=== PATIENT | female | born 1965 | race Caucasian/White ===

== ENCOUNTER 2017-06-30 16:04 | Emergency (ER) | payer SELFPAY ==
[2017-06-30 16:23] VITALS: BP 129/77
--- NOTE | 2017-06-30 17:10 | UC ---
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 - History of Current Complaint Chief Complaint: UCGeneralIllness Stated Complaint: WC NECK INJURY Time Seen by Provider: 06/30/17 17:01 Hx Obtained From: Patient ?: No Mechanism Of Injury: No Known Trauma Timing: Constant Severity: Mild Pain Intensity: 7 Location: Discrete At: - left side posterior neck Character: Dull, Aching, Stiff, Spasmotic Aggravating Factors: Movement Alleviating Factors: Position Associated Signs & Symptoms: Positive: Negative - Risk Factors Meningitis Risk Factors: Negative - Allergies/Home Medications Allergies/Adverse Reactions: Allergies Allergy/AdvReac Type Severity Reaction Status Date / Time sulfamethoxazole Allergy Rash And Verified 06/30/17 16:15 [From Bactrim] Itching trimethoprim [From Bactrim] Allergy Rash And Verified 06/30/17 16:15 Itching Home Medications: Home Medications Cetirizine* [ZyrTEC 10 MG TAB*] 1 tab BEDTIME 06/30/17 [History Confirmed ] PMH/Surg Hx/FS Hx/Imm Hx Previously Healthy: Yes - Surgical History Surgical History: Yes Surgery Procedure, Year, and Place: Disc Replacement 05. Gastric sleeve 2015 - Family History Known Family History: Positive: Cardiac Disease - Social History Occupation: Employed Full-time Lives: With Family Alcohol Use: None Substance Use Type: None Smoking Status (MU): Never Smoked Tobacco Have You Smoked in the Last Year: No Review Of Systems Constitutional: Positive: Negative Skin: Positive: Negative Eyes: Positive: Negative ENT: Positive: Negative Respiratory: Positive: Negative Cardiovascular: Positive: Negative Gastrointestinal: Positive: Negative Genitourinary: Positive: Negative Musculoskeletal: Positive: Decreased ROM - neck, Myalgia Neurological: Positive: Negative Psychological: Positive: Negative All Other Systems Reviewed And Are Negative: Yes Physical Exam Triage Information Reviewed: Yes Appearance: Well-Appearing Vital Signs: Initial Vital Signs Temp 96.8 F 06/30/17 16:17 Pulse 57 06/30/17 16:17 Resp 16 06/30/17 16:17 BP 129/77 06/30/17 16:17 Pulse Ox 100 06/30/17 16:17 Vital Signs Reviewed: Yes Eye Exam: Normal ENT Exam: Normal Dental Exam: Normal Neck exam: Other Neck: Positive: Other: - left side neck upper back, trigger point Respiratory Exam: Normal Cardiovascular Exam: Normal Musculoskeletal Exam: Normal Neurological Exam: Normal Psychological Exam: Normal Skin Exam: Normal Neck Pain Course/Dx - Differential Dx/Diagnosis Differential Dx/HQI/PQRI: Sprain, Strain, Torticollis Provider Diagnoses: trigger point tenderness. muscle spasm Discharge - Discharge Plan Condition: Stable Disposition: HOME Prescriptions: Cyclobenzaprine TAB* [Flexeril 10 MG TAB*] 10 mg PO Q8H PRN #21 tab PRN Reason: Pain Patient Education Materials: Trigger Point Pain (ED), Muscle Spasm (ED) Forms: *Work Release Referrals: LENA Segura [Primary Care Provider] -
== END 2017-06-30 17:17 | disposition home or self-care (01) ==
LOC: UCCORT 16:04
DX: M79.1 Myalgia (principal); M62.838 Other muscle spasm; Z88.1 Allergy status to other antibiotic agents
CPT/HCPCS: 99212; G0463